=== PATIENT | female | born 2000 | race Caucasian/White ===

== ENCOUNTER 2021-02-06 16:37 | Inpatient (IN) | payer OTHER, SELFPAY ==
[~2021-02-06] VITALS: Ht 165.1 cm; Wt 117.9 kg
[2021-02-06] MEDS ORDERED: LR 1,000 ML IV ONE (17:30)
[2021-02-06] MEDS ORDERED: AMPICILLIN SODIUM 2 GM in NS 100 ML IV ONE (17:30)
[2021-02-06] MEDS ORDERED: NALBUPHINE HCL 10 MG/ML AMP IVP PRN (17:30)
[2021-02-06] MEDS ORDERED: AMPICILLIN SODIUM 2 GM VIAL ONE (18:08)
[2021-02-06] MEDS: LR 1,000 ML IV SCH (18:15)
[2021-02-06 18:20] LABS: BASOPHILS % (AUTO) 0.1 % (0.0-2.0); EOSINOPHILS # (AUTO) 0.1 K/uL (0.0-0.4); EOSINOPHILS % (AUTO) 0.8 % (0.0-4.0); HEMATOCRIT 33.5 % (36-48); HEMOGLOBIN 11.2 g/dL (12.0-16.0); LYMPHOCYTES # (AUTO) 1.5 K/uL (1.0-5.5); MEAN CORPUSCULAR HEMOGLOBIN 28 pg (27-31); MEAN CORPUSCULAR HGB CONC 34 % (32-36); MEAN CORPUSCULAR VOLUME 82 fL (79.0-98.0); MONOCYTES # (AUTO) 0.6 K/uL (0.0-1.0); MONOCYTES % (AUTO) 5.4 % (1.7-9.3); NEUTROPHILS # (AUTO) 9.1 K/uL (1.8-7.7); NEUTROPHILS % (AUTO) 80.7 % (40.0-70.0); PLATELET COUNT (AUTO) 299 K/uL (130-430); RED BLOOD CELL COUNT(AUTO) 4.07 MIL/uL (4.2-6.2); WHITE BLOOD COUNT (AUTO) 11.3 K/uL (4.5-11.0)
[2021-02-06 18:48] VITALS: BP_SYST 130
[2021-02-06] MEDS: OXYTOCIN/0.9 % SODIUM CHLORIDE 1,000 ML IV SCH (21:36)
[2021-02-06] MEDS ORDERED: AMPICILLIN SODIUM 1 GM VIAL ONE (22:04)
[2021-02-06] MEDS: AMPICILLIN SODIUM 1 GM in NS 50 ML IV SCH (22:07)
[2021-02-07] MEDS: LR 1,000 ML IV SCH ×2 (00:38→01:30)
[2021-02-07] MEDS ORDERED: ROPIVACAINE HCL/PF 0.2% 200 ML ONE (00:48)
[2021-02-07] MEDS ORDERED: fentaNYL CITRATE/PF 100 MCG/2 ML AMP ONE ×2 (00:48→13:01)
[2021-02-07] MEDS ORDERED: AMPICILLIN SODIUM 1 GM VIAL ONE ×2 (02:25→05:44)
[2021-02-07] MEDS: AMPICILLIN SODIUM 1 GM in NS 50 ML IV SCH ×5 (02:28→17:42)
[2021-02-07] MEDS ORDERED: LR 500 ML IV ONE (12:45)
[2021-02-07] MEDS ORDERED: FENT2mCg/mL-ROPIVA0.2%/NS EPID 200 ML EP SCH (12:45)
[2021-02-07] MEDS ORDERED: ROPIVACAINE HCL 0.2% ONE (13:01)
--- NOTE | 2021-02-07 15:50 | NUR ---
Nutrition Note RD rounded to OB earlier today and spoke w/ RN at nursing station who reported that pt was in active labor. Pt is due for high risk Nutrition Assessment 02/08/21 d/t BMI >40 kg/m2. Nutrition Assessment deferred at this time. No RD coverage tomorrow, 02/08. Pt may be seen by another RD 02/09.
[2021-02-07] MEDS ORDERED: CEFAZOLIN 2 GM IVPB PREMIX 50 ML IV ONE (19:30)
[2021-02-07] MEDS ORDERED: PROPOFOL 200MG/ 20ML VIAL (DIPRIVAN) IV ONE (20:30)
[2021-02-07] MEDS ORDERED: LR 1,000 ML IV.SOLN IV ONE (20:30)
[2021-02-07] MEDS ORDERED: BUPIVACAINE /EPINEPHRINE/PF 0.5% 30 ML VIAL INJ ONE (20:30)
[2021-02-07] MEDS ORDERED: NS 1000 ML IV.SOLN IV ONE (20:30)
[2021-02-07] MEDS ORDERED: KETOROLAC TROMETHAMINE 60 MG/2 ML VIAL IM PRN (21:15)
[2021-02-07] MEDS ORDERED: METOCLOPRAMIDE HCL 10 MG/2 ML VIAL IVP PRN (21:15)
[2021-02-07] MEDS ORDERED: fentaNYL CITRATE/PF 100 MCG/2 ML AMP IVP PRN ×2 (21:15)
[2021-02-07] MEDS ORDERED: NALBUPHINE HCL 10 MG/ML AMP IVP PRN (21:15)
[2021-02-07] MEDS ORDERED: MORPHINE SULFATE 10MG/10ML PF AMP EP SCH (21:15)
[2021-02-07] MEDS ORDERED: DIPHENHYDRAMINE INJ 50 MG/ML VIAL IVP PRN (21:15)
[2021-02-07] MEDS ORDERED: ONDANSETRON HCL 4 MG/2 ML VIAL IVP PRN ×2 (21:15)
[2021-02-07] MEDS ORDERED: NALOXONE HCL 0.4 MG/ML AMP (NARCAN) IVP PRN ×3 (21:15→21:30)
[2021-02-07] MEDS ORDERED: HYDROcodone/ACETAMIN 5-325 MG TAB (NORCO/ VICODIN) PO PRN (21:30)
[2021-02-07] MEDS ORDERED: RHO(D) IMMUNE GLOBULIN/MALTOSE 1500 UNITS/1.3 ML (WINHRO) IM PRN (21:30)
[2021-02-07] MEDS ORDERED: MEASLES,MUMPS&RUBELLA VACC/PF 12500 UNIT/0.5 ML VIAL SUBQ PRN (21:30)
[2021-02-07] MEDS ORDERED: OXYCODONE/ACETAMINOPHEN *10*mg/325 mg TABLET PO PRN (21:30)
[2021-02-07] MEDS ORDERED: DIPH-TET-PERTUS Vaccine 0.5 ML VIAL (ADACEL) I.M. PRN (21:30)
[2021-02-07] MEDS ORDERED: OXYCODONE/ACETAMINOPHEN 5-325 TABLET PO PRN (21:30)
[2021-02-07] MEDS ORDERED: LR 1,000 ML IV SCH (21:30)
[2021-02-07] MEDS ORDERED: BISACODYL 10 MG/SUPPOSITORY RC PRN (21:30)
[2021-02-07] MEDS ORDERED: SIMETHICONE 80 MG TAB.CHEW PO PRN (21:30)
[2021-02-07] MEDS ORDERED: LANOLIN 7 GM OINT. TP PRN (21:30)
[2021-02-07] MEDS ORDERED: TEMAZEPAM 15 MG CAPSULE PO PRN (21:30)
[2021-02-07] MEDS ORDERED: ANUSOL 1 EA SUPP.RECT (PREPARATION H) RC PRN (21:30)
[2021-02-07] MEDS ORDERED: MEPERIDINE HCL/PF 25 MG/ML DISP.SYRIN ONE (21:35)
[2021-02-07 21:46] VITALS: BP_SYST 127
[2021-02-07] MEDS ORDERED: MEPERIDINE HCL/PF 25 MG/ML DISP.SYRIN IVP ONE (22:00)
[2021-02-07] MEDS: OXYTOCIN/0.9 % SODIUM CHLORIDE 1,000 ML IV SCH ×2 (23:00→23:18)
[2021-02-07] MEDS: CEFAZOLIN 1 GM IVPB PREMIX 50 ML IV SCH (23:15)
[2021-02-08] MEDS ORDERED: METHYLERGONOVINE MALEATE 0.2 MG/ML AMP ONE (05:32)
[2021-02-08] MEDS: OXYTOCIN/0.9 % SODIUM CHLORIDE 1,000 ML IV SCH ×2 (05:56→09:54)
[2021-02-08] MEDS: CEFAZOLIN 1 GM IVPB PREMIX 50 ML IV SCH ×2 (05:58→13:59)
[2021-02-08] MEDS ORDERED: KETOROLAC TROMETHAMINE 30 MG VIAL IVP SCH (06:00)
[2021-02-08] MEDS ORDERED: OXYTOCIN 10 UNIT/ML VIAL ONE (06:30)
[2021-02-08] MEDS ORDERED: METHYLERGONOVINE MALEATE 0.2 MG/ML AMP IM ONE (06:45)
[2021-02-08] MEDS ORDERED: OXYTOCIN 10 UNIT/ML VIAL IV ONE (06:50)
[2021-02-08] MEDS: DOCUSATE SODIUM 100 MG CAPSULE PO SCH ×2 (10:39→22:09)
[2021-02-08 12:22] LABS: BASOPHILS % (AUTO) 0.2 % (0.0-2.0); EOSINOPHILS % (AUTO) 0.2 % (0.0-4.0); HEMATOCRIT 30.9 % (36-48); HEMOGLOBIN 10.5 g/dL (12.0-16.0); LYMPHOCYTES # (AUTO) 1.2 K/uL (1.0-5.5); LYMPHOCYTES % (AUTO) 10.1 % (20.5-51.5); MEAN CORPUSCULAR HEMOGLOBIN 28 pg (27-31); MEAN CORPUSCULAR HGB CONC 34 % (32-36); MEAN CORPUSCULAR VOLUME 82 fL (79.0-98.0); MONOCYTES # (AUTO) 0.8 K/uL (0.0-1.0); MONOCYTES % (AUTO) 6.7 % (1.7-9.3); NEUTROPHILS % (AUTO) 82.8 % (40.0-70.0); PLATELET COUNT (AUTO) 234 K/uL (130-430); RED BLOOD CELL COUNT(AUTO) 3.76 MIL/uL (4.2-6.2); RED CELL DISTRIBUTION WIDTH 15.1 % (9.0-15.0)
[2021-02-08] MEDS ORDERED: KETOROLAC TROMETHAMINE 60 MG/2 ML VIAL IM ONE (15:30)
[2021-02-08] MEDS ORDERED: SENNOSIDES/DOCUSATE SODIUM 1 TAB TABLET(SENOKOT-S) PO SCH (21:00)
[2021-02-09] MEDS: IBUPROFEN 600 MG TABLET PO SCH ×3 (00:12→12:53)
[2021-02-09] MEDS ORDERED: BUPIVACAINE /PF 0.75% 10 ML VIAL INJ ONE (08:17)
[2021-02-09] MEDS: DOCUSATE SODIUM 100 MG CAPSULE PO SCH (09:27)
[2021-02-10 20:06] LABS: FTA-Ab (T PALLIDUM) Non Reactive (Non Reactive)
== END 2021-02-09 18:20 | disposition home or self-care (01) | DRG 540 ==
LOC: SPU 16:37
PROVIDERS: ADMIT Specialist; ATTEND Specialist
PROC: 10D00Z1 Extraction of Products of Conception, Low, Open Approach (ICD-10-PCS; principal; 2021-02-08)
DX: O99.824 Streptococcus B carrier state complicating childbirth (principal); O32.4XX0 Maternal care for high head at term, not applicable or unspecified; O33.9 Maternal care for disproportion, unspecified; O62.2 Other uterine inertia; Z20.822 Contact with and (suspected) exposure to COVID-19; O48.0 Post-term pregnancy; Z37.0 Single live birth; Z3A.41 41 weeks gestation of pregnancy
CPT/HCPCS: 36415; 85025; 86592; 86780; 86886; 86900; 86901; J0290; J0690; J1885; J2175; J2210; J2590; J2704; J3010; J3490; J7030; J7120